=== PATIENT | female | born 1970 | race Caucasian/White ===

== ENCOUNTER 2020-07-01 11:21 | Emergency (ER) | payer SELFPAY ==
[~2020-07-01] VITALS: Ht 162.6 cm; Wt 58.0 kg
[2020-07-01 11:22] VITALS: BP 146/82
[2020-07-01 12:02] LABS: BASO % 0.6 % (0.0-1.0); EOS % 0.4 % (0.0-3.0); HEMATOCRIT 50.7 % (42.0-52.0); HEMOGLOBIN 17.2 g/dl (13.5-17.5); LYMPH # 1.8 10^3/uL (1.5-5.0); LYMPH % 38.5 % (24.0-44.0); MEAN CORPUSCULAR HEMOGLOBIN 32.8 pg (27.0-33.0); MEAN CORPUSCULAR HGB CONC 33.9 g/dl (32.0-36.5); MEAN CORPUSCULAR VOLUME 96.6 fl (80.0-96.0); MONO # 0.9 10^3/uL (0.0-0.8); MONO % 18.6 % (2.0-8.0); NEUTROPHILS # 1.9 10^3/uL (1.5-8.5); NEUTROPHILS % 41.5 % (36.0-66.0); PLATELET COUNT, AUTOMATED 288 10^3/uL (150-450); RED BLOOD COUNT 5.25 10^6/uL (4.30-6.10); WHITE BLOOD COUNT 4.6 10^3/uL (4.0-10.0)
[2020-07-01] MEDS ORDERED: NS 1,000 ML IV ONE (12:15)
[2020-07-01] MEDS ORDERED: PANTOPRAZOLE 40MG VIAL (C9113 PER 1) IV ONE (12:15)
[2020-07-01 12:35] LABS: ALBUMIN 3.6 GM/DL (3.2-5.2); ALT/SGPT 22 U/L (12-78); BILIRUBIN,DIRECT < 0.1 MG/DL (0.0-0.2); BILIRUBIN,TOTAL 0.5 MG/DL (0.2-1.0); BLOOD UREA NITROGEN 15 MG/DL (7-18); CALCIUM LEVEL 9.9 MG/DL (8.5-10.1); CARBON DIOXIDE LEVEL 32 MEQ/L (21-32); CHLORIDE LEVEL 104 MEQ/L (98-107); CREATININE FOR GFR 0.65 MG/DL (0.55-1.30); GLOMERULAR FILTRATION RATE > 60.0 (>51); GLUCOSE, FASTING 92 MG/DL (70-100); LIPASE 58 U/L (73-393); POTASSIUM SERUM 4.7 MEQ/L (3.5-5.1); SODIUM LEVEL 138 MEQ/L (136-145); TOTAL PROTEIN 7.2 GM/DL (6.4-8.2)
--- NOTE | 2020-07-01 13:45 | REP ---
INDICATION: epigastric pain, hx pud COMPARISON: None. TECHNIQUE: Upright view of the chest with supine and upright views of the abdomen and pelvis. FINDINGS: Frontal upright view of the chest demonstrates no acute cardiopulmonary process or free air below the diaphragm to suspect pneumoperitoneum. Supine and upright views of the abdomen and pelvis demonstrate nonspecific bowel gas pattern. No organomegaly. Prior cholecystectomy. No abnormal calcifications. Skeletal structures normal for age. IMPRESSION: Nonspecific bowel gas pattern. <Electronically signed by Cezar Trevino > 07/01/20 [id number]
[2020-07-01] MEDS ORDERED: CARA1TAB6 PO (13:51)
[2020-07-01] MEDS ORDERED: PROT1TAB2 PO (13:51)
--- NOTE | 2020-07-01 18:19 | ECGEPIP ---
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
== END 2020-07-01 14:09 | disposition home or self-care (01) ==
LOC: EDSEX 11:21 → M ED 11:21
DX: R10.13 Epigastric pain (principal); R25.1 Tremor, unspecified; K27.9 Peptic ulcer, site unspecified, unspecified as acute or chronic, without hemorrhage or perforation; Z86.73 Personal history of transient ischemic attack (TIA), and cerebral infarction without residual deficits; F17.210 Nicotine dependence, cigarettes, uncomplicated; Z88.8 Allergy status to other drugs, medicaments and biological substances
CPT/HCPCS: 74021; 80048; 80076; 81001; 83690; 85025; 93005; 96361; 96374; 99283; C9113

== ENCOUNTER 2022-01-02 19:51 | Emergency (ER) | payer OTHER, SELFPAY ==
[~2022-01-02] VITALS: Ht 164.5 cm; Wt 49.8 kg
[~2022-01-02 19:51] MED LIST: CARA1TAB6 PO; PROT1TAB2 PO
[2022-01-03] MEDS ORDERED: ISOVUE-370 76% 100ML VIAL As Ordered ONE (01:18)
[2022-01-03] MEDS ORDERED: KEPP1TAB PO (02:19)
[2022-01-03 02:31] VITALS: BP 142/79
== END 2022-01-03 02:33 | disposition home or self-care (01) ==
LOC: M ED 19:51
DX: G43.109 Migraine with aura, not intractable, without status migrainosus (principal); R56.9 Unspecified convulsions; R47.81 Slurred speech; I69.30 Unspecified sequelae of cerebral infarction; Z88.5 Allergy status to narcotic agent
CPT/HCPCS: 70450; 70496; 70498; 80047; 93005; 99284; Q9967